=== PATIENT | male | born 1985 | race Two or more races ===

== ENCOUNTER 2025-02-02 11:40 | Emergency (ER) | payer MEDICAID ==
[~2025-02-02] VITALS: Ht 170.2 cm; Wt 74.0 kg
[2025-02-02 11:42] VITALS: O2SAT 100
[2025-02-02 11:56] VITALS: BP 120/80; PULSE 98; RESP 18; TEMP 36.8; O2SAT 96
[2025-02-02] MEDS ORDERED: GABA-1180 MT (13:01)
[2025-02-02] MEDS ORDERED: TRAZ-252 MT (13:01)
[2025-02-02] MEDS ORDERED: METF-414 MT (13:01)
== END 2025-02-02 13:32 | disposition home or self-care (01) ==
LOC: ER 12:08
DX: E11.9 Type 2 diabetes mellitus without complications (principal); I10 Essential (primary) hypertension; Z76.0 Encounter for issue of repeat prescription; Z79.84 Long term (current) use of oral hypoglycemic drugs; Z79.899 Other long term (current) drug therapy
CPT/HCPCS: 82962; 99281; 99282